=== PATIENT | male | born 1975 | race Caucasian/White ===

== ENCOUNTER → 2024-11-14 07:15 | Outpatient (REF) | payer BC, SELFPAY | LOC: HWRCS 07:15 | PROVIDERS: ATTENDING PHYSICIAN Nuclear Medicine Nuclear Cardiology; FAMILY PHYSICIAN Family Medicine | DX: R94.31 Abnormal electrocardiogram [ECG] [EKG] (principal); I10 Essential (primary) hypertension | CPT/HCPCS: 93306 ==